=== PATIENT | female | born 1955 | race Two or more races ===

== ENCOUNTER → 2018-05-22 | Outpatient (CLI) | payer BC ==
[2015-07-12 11:00] VITALS: BP 121/55
[~2018-05-22] MED LIST: ASPI-612 PO; ATOR10TA PO; LEVO25TA55 PO; OLME1TAB23 PO
--- NOTE | 2018-05-23 09:11 | RAD ---
Right lower extremity venous doppler ultrasound History: Right leg pain and swelling Comparison: None Findings: Multiple grayscale, color, and duplex spectral analysis sonographic images were acquired of the right lower extremity veins to evaluate for the presence of DVT. There is normal phasicity. Normal compression, color-flow, and augmentation is demonstrated from the right common femoral to the popliteal veins. There is normal color flow of the proximal greater saphenous and profunda femoris veins. There is normal color flow of segments of the calf veins. Impression: 1. There is no evidence of deep venous thrombosis from the right common femoral to popliteal veins. Electronically signed by: Otoniel Cohen MD (05/23/2018 9:07 AM) [id number]
== END | disposition home or self-care (01) ==
LOC: US 16:53
PROVIDERS: ATTEND Internal Medicine
DX: M79.604 Pain in right leg (principal); R22.41 Localized swelling, mass and lump, right lower limb
CPT/HCPCS: 93971

== ENCOUNTER → 2018-12-24 | Outpatient (CLI) | payer BC ==
[2015-07-12 11:00] VITALS: BP 121/55
[~2018-12-24] MED LIST changes: +REGADENOSON 0.4 MG/5 ML DISP.SYRIN. IV ONE
--- NOTE | 2018-12-24 11:25 | RAD ---
MR#: [id number] Date of Study: 12/24/2018 Ordering Physician: BETTY HART, Referring Physician: BETTY HART, Tech: Juan Brooks MBA, RDMS, RVT, RDCS, RTR APPROVED REPORT Patient Location: OUT-PATIENT Indications Uncontrolled HTN Renal Artery Doppler Right Renal Artery Left Renal Arter y Proximal 68.0/13.0 cm/secProximal 108.0/34.0 cm/sec Mid 165.0/33.0 cm/secMid 166.0/32.0 cm/sec Distal 136.0/27.0 cm/secDistal 117.0/26.0 cm/sec Renal/Aorta Ratio 1.30Renal/Aorta Ratio 1.30 Prox. Resistive Index 0.81Prox. Resistive Index 0.69 Mid Resistive Index 0.80Mid Resistive Index 0.81 Distal Resistive Index 0.80Distal Resistive Index 0.78 Rt. Segmental A. 44.0/11.0 cm/secLt. Segmental A. 47.0/13.0 cm/sec Renal Measurements RightLeft Kidney Ipxstk62.9 cm cmKidney Aqcstd20.2 cm cm Right Additional FindingsLeft Additional Findings Aortic Doppler VelocityWaveform Proximal Aorta 125.0 cm/sec Findings Grayscale images of the bilateral renal arteries, aorta and the kidneys do not demonstrate any acute pathology Technically limited images due to body habitus Spectral waveforms and color Doppler involving the proximal, mid and distal renal arteries as well as the aorta do not reveal any significant velocity deceleration. Overall no significant renal artery s tenosis. Normal renal to aortic ratios. Critical Notification Critical Value: No <Conclusion> 1. No significant renal artery stenosis. Signed by : Lenny Sebastian, Electronically Approved : 12/24/2018 11:25:00
--- NOTE | 2018-12-24 11:42 | RAD ---
MR#: [id number] Date of Study: 12/24/2018 Ordering Physician: BETTY HART, Referring Physician: BETTY HART, Tech: Juan Brooks MBA, RDMS, RVT, RDCS, RTR APPROVED REPORT Patient Location: OUT-PATIENT Laterality:Bilateral Indications CAD Doppler Spectral Velocity Analysis Right Left pCCA 80/16 cm/spCCA 75/12 cm/s mCCA 82/16 cm/smCCA 81/16 cm/s dCCA 76/15 cm/sdCCA 81/19 cm/s Bulb 77/18 cm/sBulb 67/17 cm/s ECA 114/ cm/sECA 109/ cm/s pICA 68/16 cm/spICA 106/17 cm/s Triston 68/18 cm/smICA 71/23 cm/s dICA 99/34 cm/sdICA 75/25 cm/s Vert. 52/ cm/sVert. 70/ cm/s Subcl. 113/ cm/sSubcl. 170/ cm/s ICA/CCA 1.21ICA/CCA 1.41 Findings Grayscale images of the bilateral common carotid, external and internal carotid vessels do not reveal any significant stenosis. Color Doppler and spectral images are within normal limits overall suggestive 0 to less than 50% sten osis by velocity criteria. Normal ICA to CCA ratios. Normal antegrade vertebral velocities. Critical Notification Critical Value: No <Conclusion> No significant carotid occlusive disease bilaterally. Signed by : Lenny Sebastian, Electronically Approved : 12/24/2018 11:41:24
--- NOTE | 2018-12-24 12:41 | RAD ---
MR#: [id number] Date of Study: 12/24/2018 Ordering Physician: BETTY HART Referring Physician: SKYLAR KENYON Tech: RT Simone Claros) (N) APPROVED REPORT Test Type: Pharmacological Stress Nurse/Tech: Maria Esther Ken RN Test Indications: CAD Cardiac History: Hypertension, Diabetes, 2 stents Medications: See Electronic Medical Record Medical History: See Electronic Medical Record Resting ECG: SB Resting Heart Rate: 58 bpm Resting Blood Pressure: 158/57mmHg Pretest Chest Pain: Atypical angina Nurse/Tech Notes S1,S2 and lungs clear to auscultation. Consent: The procedure was explained to the patient in lay terms. Informed consent was witnessed. Gerard eout was entered into [employer]. History and Stress Test performed by RT Simone Claros) (N) Pharm. Details Pharmacologic stress testing was performed using 0.4mg per 5ml of regadenoson given intravenously ove r 7-10 seconds. Stress Symptoms Dizziness,headache POST EXERCISE Reason for Termination: Infusion complete Target HR: No Max HR: 98 bpm Max Blood Pressure: 156/60mmHg Blood Pressure response to exercise: Normal blood pressure response during stress. Heart Rate response to exercise: WNL Chest Pain: No. Arrhythmia: No. ST Change: No. INTERPRETATION Stress EKG Conclusion: The resting EKG shows a sinus rhythm with slight nonspecific ST T changes. The stress EKG shows no significant changes from baseline. No EKG evidence of stress-induced ischemia. Imaging Protocol IMAGE PROTOCOL: Rest Tc-99m/stress Tc-99m 1 day Rest: Stress: Viability: Radiopharm.Tc99m UlrsveehyNb25a Sestamibi Dose10.6mCi 33mCi Duration 13min. 13min. Img Date 12/24/2018 12/24/2018 Inj-Img [id number]. 60min. Rest Admin Site:IV - Left HandAdministrator:RT Zeeshan (Alessandra)(N) Stress Admin Site: IV - Left HandAdministrator: RT Zeeshan (Alessandra)(N) STRESS DATA End Diast. Vol.86.0mlLVEDV index BSA50.0ml End Syst. Vol.28.0mlLVESV index BSA16.0ml Myocardial Ogog704.0gEject. Phwllbpn82.0% Stress Scores Regional WT1.00Summed WT12.00 Regional WM0.00Summed WM1.00 LV Perfusion The stress scans show no significant defects. The rest scans showed no significant defects. Nuclear imaging shows no reversible ischemia or infarct. Wall Motion Left ventricular systolic function is intact with no wall motion abnormalities and an ejection fracti on of 67%. LV Perf. Quant 17 Seg. SSS0.00 17 Seg. SRS0.00 17 Seg. SDS0.00 Stress Defect Extent (% LAD)0.00Rest Defect Extent (% LAD)0.00Rev. Defect Extent (% LAD)0.00 Stress Defect Extent (% LCX) 0.00Rest Defect Extent (% LCX)0.00Rev. Defect Extent (% LCX)0.00 Stress Defect Extent (% RCA)0.00Rest Defect Extent (% RCA)0.00Rev. Defect Extent (% RCA)0.00 Stress Defect Extent (% DIANA)0.00Rest Defect Extent (% DIANA)0.00Rev. Defect Extent (% DIANA)0.00 Conclusion 1. No EKG evidence of stress-induced ischemia. 2. Nuclear imaging shows no reversible ischemia or infarct. 3. Normal left ventricular systolic function with an ejection fraction of 67%. 4. Low risk Lexiscan nuclear stress test. Signed by : Pop Montiel MD Electronically Approved : 12/24/2018 12:41:36
== END | disposition home or self-care (01) ==
LOC: NM 07:45
PROVIDERS: ATTEND Internal Medicine Cardiovascular Disease
DX: I25.10 Atherosclerotic heart disease of native coronary artery without angina pectoris (principal); I10 Essential (primary) hypertension; E11.9 Type 2 diabetes mellitus without complications; Z95.5 Presence of coronary angioplasty implant and graft
CPT/HCPCS: 78452; 93017; 93880; 93975; A9500; J2785